=== PATIENT | male | born 1965 | race African-American/Black ===

== ENCOUNTER 2022-03-05 13:05 | Emergency (ER) | payer OTHER ==
[~2022-03-05] VITALS: Ht 182.9 cm; Wt 117.9 kg
[~2022-03-05 13:05] MED LIST: AMOX1TAB12 PO; BACTROBAN TP; HIBICLENS TP; INTESTINEX1 CA1 PO; LOTRISONE TP
== END 2022-03-05 17:33 | disposition home or self-care (01) ==
LOC: ER 13:05
DX: S93.401A Sprain of unspecified ligament of right ankle, initial encounter (principal); W18.30XA Fall on same level, unspecified, initial encounter; Y93.9 Activity, unspecified; Y92.018 Other place in single-family (private) house as the place of occurrence of the external cause; Y99.9 Unspecified external cause status